=== PATIENT | male | born 1975 | race Caucasian/White ===

== ENCOUNTER 2018-05-25 17:16 | Outpatient (CLI) | payer OTHER ==
[2018-05-25] MEDS ORDERED: 0.9 % SODIUM CHLORIDE 1,000 ML IV ONE (17:26)
[2018-05-25 17:32] VITALS: BP 150/89
[2018-05-25 17:47] LABS: BASOPHILS % 0.5 (0.0-1.5); EOSINOPHILS % 0.5 % (0.0-6.8); MEAN CORPUSCULAR HEMOGLOBIN 31.3 pg (28.0-34.0); MEAN CORPUSCULAR VOLUME 89.2 fl (80.0-100.0); MONOCYTES % 3.9 % (0.0-11.0); NEUTROPHILS # 6.6 # k/uL (1.4-7.7)
[2018-05-25 17:56] LABS: eGFR (African) > 60; eGFR (Non-African) > 60
== END 2018-05-25 17:18 ==
LOC: LAB 17:16
PROVIDERS: ATTEND Emergency Medicine
DX: R55 Syncope and collapse (principal)
CPT/HCPCS: 80053; 84484; 85025; J7030; S1016